=== PATIENT | male | born 1980 | race Caucasian/White ===

== ENCOUNTER 2016-11-30 23:14 | Emergency (ER) | payer OTHER ==
[2016-12-01 00:11] VITALS: BP 124/73
[2016-12-01] MEDS ORDERED: IBUPROFEN 600 MG TABLET PO ONE (02:35)
[2016-12-01] MEDS ORDERED: ACETAMINOPHEN 325 MG TABLET PO ONE (02:35)
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
== END 2016-12-01 04:06 | disposition home or self-care (01) ==
LOC: ER 23:14
DX: S69.91XA Unspecified injury of right wrist, hand and finger(s), initial encounter (principal); W39.XXXA Discharge of firework, initial encounter; F17.200 Nicotine dependence, unspecified, uncomplicated
CPT/HCPCS: 99283